=== PATIENT | male | born 1980 | race Caucasian/White ===

== ENCOUNTER → 2016-06-16 | Outpatient (CLI) | payer OTHER ==
[~2016-06-16] MED LIST: ISOVUE-370 76% 100ML VIAL (Q9967) As Ordered ONE
--- NOTE | 2016-06-16 12:11 | REP ---
CT NECK WITHOUT CONTRAST: HISTORY: Neck mass. The naso-, luna-, and hypopharynx, larynx and subglottic trachea are normal in appearance. The salivary glands are normal. A 7 mm hypodensity containing a punctate calcification is present in the right thyroid lobe. A 1.2 cm calcification is present in the left thyroid lobe. Small lymph nodes less than 1 cm in size are present in the internal jugular chains, posterior triangles, submandibular and submental areas. There is no neck mass or adenopathy. The lung apices are clear. Retention cysts are present in the maxillary sinuses. IMPRESSION: There is a 7 mm hypodensity containing a punctate calcification in the right thyroid lobe. A 1.2 cm calcification is present in the left thyroid lobe. Ultrasound may be helpful for further evaluation. Signed by Paul Frank MD 06/16/2016 12:14 P
== END ==
LOC: M RAD 10:24
PROVIDERS: ATTEND Physician Assistant Medical
DX: E07.89 Other specified disorders of thyroid (principal)

== ENCOUNTER → 2016-09-04 | Outpatient (REF) | payer OTHER | LOC: M LAB REF 09:45 | PROVIDERS: ATTEND Internal Medicine Endocrinology, Diabetes & Metabolism | DX: D44.0 Neoplasm of uncertain behavior of thyroid gland (principal) ==

== ENCOUNTER 2016-10-20 07:51 | Emergency (ER) | payer OTHER ==
[~2016-10-20] VITALS: Ht 185.4 cm; Wt 99.8 kg
[2016-10-20] MEDS ORDERED: GLUC750T22 PO (08:09)
[2016-10-20] MEDS ORDERED: FISH1000 PO (08:09)
[2016-10-20] MEDS ORDERED: LEVO25TA5 PO (08:09)
[2016-10-20] MEDS ORDERED: ZOLO100T PO (08:09)
[2016-10-20] MEDS ORDERED: ASPIRIN 81 MG CHEW TABLET PO ONE (08:45)
[2016-10-20 08:52] LABS: ANION GAP 10 MEQ/L (8-16); BLOOD UREA NITROGEN 14 MG/DL (7-18); CALCIUM LEVEL 9.1 MG/DL (8.5-10.1); CARBON DIOXIDE LEVEL 22 MEQ/L (21-32); CHLORIDE LEVEL 109 MEQ/L (98-107); CREATININE FOR GFR 1.06 MG/DL (0.70-1.30); FREE T4 0.77 NG/DL (0.76-1.46); GLOMERULAR FILTRATION RATE > 60.0 (>60); GLUCOSE, FASTING 92 MG/DL (70-105); SODIUM LEVEL 141 MEQ/L (136-145)
[2016-10-20 09:00] LABS: EOS # 0.5 K/mm3 (0.0-0.50); EOS % 9.3 % (0.0-3.0); LARGE UNSTAINED CELL # 0.1 K/mm3 (0.0-0.4); LARGE UNSTAINED CELL % 1.9 % (0.0-4.0); LYMPH # 2.8 K/mm3 (1.5-4.5); LYMPH % 52.3 % (24.0-44.0); MEAN CORPUSCULAR HGB CONC 34.4 g/dl (32.0-36.5); MONO # 0.2 K/mm3 (0.0-0.8); MONO % 3.8 % (0.0-5.0); NEUTROPHILS # 1.6 K/mm3 (1.8-7.7); NEUTROPHILS % 31.7 % (36.0-66.0); PLATELET COUNT, AUTOMATED 227 k/mm3 (150-450); WHITE BLOOD COUNT 5.1 K/mm3 (4.0-10.0)
[2016-10-20 09:08] LABS: POTASSIUM SERUM 2.9 MEQ/L (3.5-5.1)
[2016-10-20] MEDS ORDERED: POTASSIUM CHLORIDE 10 MEQ SR TABLET PO ONE (09:15)
--- NOTE | 2016-10-20 09:36 | REP ---
CHEST, PORTABLE, SINGLE VIEW: There is no evidence of acute infiltrate. No pleural effusion is seen. The heart is normal in size. The mediastinal silhouette is unremarkable. The visualized osseous structures are intact. IMPRESSION: No acute pulmonary disease. Signed by Nolan Damon MD 10/20/2016 03:12 P
--- NOTE | 2016-10-20 12:20 | ECGEPIP ---
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
[2016-10-20] MEDS ORDERED: ISOVUE-370 76% 100ML VIAL (Q9967) As Ordered ONE (14:24)
[2016-10-20 15:22] VITALS: BP 120/65
--- NOTE | 2016-10-20 15:25 | REP ---
CT ANGIOGRAM OF THE CHEST: TECHNIQUE: Axial contrast enhanced images from the thoracic inlet to the upper abdomen using 100 mL Isovue 370 intravenous contrast material with multiplanar reformations. There is no CT evidence of a pulmonary embolism. There is n evidence of mediastinal, hilar, or chest wall lymphadenopathy. There is no pleural or pericardial effusion. The heart is normal in size. There is no infiltrate. There appears to be linear pleural thickening along the right minor fissure. There is a 3 mm nodular opacity in the left lower lobe which is of doubtful significance. IMPRESSION: No CT evidence of pulmonary embolism. 3 mm nodular density in the left lower lobe. Recommend followup CT in 1 year only if the patient is at high risk for cancer. Signed by Nolan Damon MD 10/20/2016 03:30 P
--- NOTE | 2016-10-21 05:56 | ECGEPIP ---
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
== END 2016-10-20 15:23 | disposition home or self-care (01) ==
LOC: M ED 08:51
DX: R91.1 Solitary pulmonary nodule (principal); R07.89 Other chest pain; E78.5 Hyperlipidemia, unspecified; E03.9 Hypothyroidism, unspecified; Z79.899 Other long term (current) drug therapy
CPT/HCPCS: 36415; 71010; 71275; 80048; 82550; 82553; 84439; 84443; 85025; 93005; 93041; 94760; 99285; Q9967

== ENCOUNTER → 2017-05-08 | Outpatient (REF) | payer OTHER ==
[2017-05-08 21:04] LABS: FREE T4 1.18 NG/DL (0.76-1.46); THYROID STIMULATING HORMONE 0.009 uIU/ML (0.358-3.740)
[2017-05-10 10:13] LABS: THRYOGLOBULIN ANTIBODIES (ATA) < 1.0 IU/mL (0.0-0.9); THYROGLOBULIN QUANTITATIVE 14.8 ng/mL (1.4-29.2)
== END ==
LOC: M LAB REF 20:02 → M LABDRAW1 20:03
DX: E03.9 Hypothyroidism, unspecified (principal); C73 Malignant neoplasm of thyroid gland

== ENCOUNTER → 2017-10-02 | Outpatient (REF) | payer OTHER ==
[2017-10-02 16:37] LABS: FREE T4 1.08 NG/DL (0.76-1.46); THYROID STIMULATING HORMONE 0.009 uIU/ML (0.358-3.740)
[2017-10-04 10:16] LABS: THRYOGLOBULIN ANTIBODIES (ATA) < 1.0 IU/mL (0.0-0.9); THYROGLOBULIN QUANTITATIVE 15.6 ng/mL (1.4-29.2)
== END ==
LOC: M LABDRAW1 16:02
DX: E89.0 Postprocedural hypothyroidism (principal); C73 Malignant neoplasm of thyroid gland

== ENCOUNTER → 2018-02-13 | Outpatient (REF) | payer OTHER | LOC: M SMT 13:21 | DX: Z30.2 Encounter for sterilization (principal) | CPT/HCPCS: 88302 ==

== ENCOUNTER → 2018-05-15 | Outpatient (CLI) | payer OTHER ==
[~2018-05-15] MED LIST changes: +FISH1000 PO; +GLUC750T22 PO; -ISOVUE-370 76% 100ML VIAL (Q9967) As Ordered ONE; +LEVO25TA5 PO; +ZOLO100T PO
== END ==
LOC: M OUTALCOH 09:22
PROVIDERS: ATTEND Psychiatry & Neurology Psychiatry
DX: Z03.89 Encounter for observation for other suspected diseases and conditions ruled out (principal)

== ENCOUNTER 2018-05-23 15:52 | Outpatient (RCR) | payer OTHER | END 2018-05-30 | LOC: M OUTALCOH 15:52 | PROVIDERS: ATTEND Psychiatry & Neurology Psychiatry | DX: Z03.89 Encounter for observation for other suspected diseases and conditions ruled out (principal) ==

== ENCOUNTER → 2018-07-02 | Outpatient (REF) | payer OTHER ==
[2018-07-03 10:27] LABS: THRYOGLOBULIN ANTIBODIES (ATA) < 1.0 IU/mL (0.0-0.9); THYROGLOBULIN QUANTITATIVE 35.7 ng/mL (1.4-29.2)
== END ==
LOC: M LABDRAW1 12:44 → M LAB REF 12:44
PROVIDERS: ATTEND Internal Medicine Endocrinology, Diabetes & Metabolism
DX: C73 Malignant neoplasm of thyroid gland (principal)

== ENCOUNTER → 2018-11-08 | Outpatient (REF) | payer OTHER ==
[2018-11-08 12:34] LABS: FREE T4 0.95 NG/DL (0.76-1.46); THYROID STIMULATING HORMONE 0.021 uIU/ML (0.358-3.740)
[2018-11-08 12:36] LABS: THYROGLOBULIN ANTIBODY 18.4 U/ML (<60.0)
[2018-11-09 14:16] LABS: THRYOGLOBULIN ANTIBODIES (ATA) < 1.0 IU/mL (0.0-0.9); THYROGLOBULIN QUANTITATIVE 19.9 ng/mL (1.4-29.2)
== END ==
LOC: M LABDRAW1 09:56
PROVIDERS: ATTEND Nurse Practitioner Family
DX: E89.0 Postprocedural hypothyroidism (principal)

== ENCOUNTER → 2019-05-13 | Outpatient (REF) | payer OTHER ==
[2019-05-13 13:40] LABS: FREE T4 1.13 NG/DL (0.76-1.46); THYROID STIMULATING HORMONE 0.053 uIU/ML (0.358-3.740)
[2019-05-14 14:10] LABS: THRYOGLOBULIN ANTIBODIES (ATA) < 1.0 IU/mL (0.0-0.9); THYROGLOBULIN QUANTITATIVE 15.1 ng/mL (1.4-29.2)
== END ==
LOC: M LABDRAW1 12:47
PROVIDERS: ATTEND Nurse Practitioner Family
DX: E89.0 Postprocedural hypothyroidism (principal)

== ENCOUNTER 2019-06-13 10:20 | Inpatient (IN) | payer OTHER ==
[~2019-06-13] VITALS: Ht 185.4 cm; Wt 97.6 kg
[2019-06-13] MEDS ORDERED: SERT-138 PO (10:36)
[2019-06-13] MEDS ORDERED: SYNT175T2 PO (10:36)
[2019-06-13 11:07] LABS: HEMATOCRIT 45.5 % (42.0-52.0); HEMOGLOBIN 15.3 g/dl (13.5-17.5); MEAN CORPUSCULAR HEMOGLOBIN 30.2 pg (27.0-33.0); MEAN CORPUSCULAR HGB CONC 33.6 g/dl (32.0-36.5); MEAN CORPUSCULAR VOLUME 89.9 fl (80.0-96.0); PLATELET COUNT, AUTOMATED 282 10^3/uL (150-450); RED BLOOD COUNT 5.06 10^6/uL (4.30-6.10); WHITE BLOOD COUNT 6.9 10^3/uL (4.0-10.0)
[2019-06-13 11:36] LABS: AMPHETAMINES LEVEL URINE NEGATIVE (NEGATIVE); BARBITURATES URINE NEGATIVE (NEGATIVE); BENZODIAZEPINES URINE NEGATIVE (NEGATIVE); CANNABINOIDS URINE POSITIVE (NEGATIVE); COCAINE METABOLITE URINE NEGATIVE (NEGATIVE); METHADONE URINE NEGATIVE (NEGATIVE); OPIATES URINE NEGATIVE (NEGATIVE); PHENCYCLIDINE URINE NEGATIVE (NEGATIVE)
[2019-06-13 12:11] LABS: ACETAMINOPHEN LEVEL < 2.0 UG/ML (10.0-30.0); ALBUMIN 4.5 GM/DL (3.2-5.2); ALT/SGPT 44 U/L (12-78); BILIRUBIN,DIRECT 0.2 MG/DL (0.0-0.2); BILIRUBIN,TOTAL 0.3 MG/DL (0.2-1.0); BLOOD UREA NITROGEN 10 MG/DL (7-18); CALCIUM LEVEL 9.1 MG/DL (8.5-10.1); CARBON DIOXIDE LEVEL 25 MEQ/L (21-32); CHLORIDE LEVEL 108 MEQ/L (98-107); CREATININE FOR GFR 1.01 MG/DL (0.70-1.30); ETHYL ALCOHOL (ETHANOL) 0.052 % (0.000-0.010); GLOMERULAR FILTRATION RATE > 60.0 (>60); GLUCOSE, FASTING 87 MG/DL (70-100); POTASSIUM SERUM 3.9 MEQ/L (3.5-5.1); SALICYLATE LEVEL 2.5 MG/DL (5.0-30.0); SODIUM LEVEL 140 MEQ/L (136-145); THYROID STIMULATING HORMONE 0.085 uIU/ML (0.358-3.740); TOTAL PROTEIN 8.2 GM/DL (6.4-8.2)
[2019-06-13] MEDS ORDERED: MAALOX 30 ML SUSP *UDC PO PRN (14:15)
[2019-06-13] MEDS ORDERED: ACETAMINOPHEN TAB 650MG DOSE (2X325MG) PO PRN (14:15)
[2019-06-13] MEDS ORDERED: MOM 30ML SUSPENSION UDC PO PRN (14:15)
[2019-06-13 16:31] VITALS: BP 144/85
[2019-06-13] MEDS: NICOTINE 21MG/24HR 1 EA TRANSDERMAL TD SCH (17:45)
[2019-06-14] MEDS: LEVOTHYROXINE 125MCG TABLET (0.125MG) PO SCH (05:56)
[2019-06-14] MEDS: LEVOTHYROXINE 50MCG TABLET (0.05MG) PO SCH (05:56)
[2019-06-14 06:16] VITALS: BP 149/85
[2019-06-14] MEDS: NICOTINE 21MG/24HR 1 EA TRANSDERMAL TD SCH (08:59)
--- NOTE | 2019-06-14 10:44 | MHHPEPDOC ---
[facility] History & Physical History and Physical DATE OF ADMISSION: Jun 13, 2019 at 14:01 New Patient Joseph Franklin MRN: N/A Date of : N/A Date of Service: 06/14/2019 Chief Complaint "I can't deal with my shit." History of Present Illness The patient is a 38-year-old man who has a history of PTSD, had served in the for nearly 16 years in [facility] after reportedly having suicidal thoughts of wanting to shoot himself. He had reportedly told his today that he would "bullet" and had been chased by police into the [facility] where he had come out after he reportedly was able to be coaxed out and brought to the ER where he was admitted out of an abundance of caution. When I met with the patient, he reported that he had significant memories focused on his experiences that haunted him intrusive thoughts hypervigilance and negative cognition about the future. He reports coping with alcohol and sex. He describes that his symptoms are difficult to manage at baseline, but become extremely difficult to manage when he starts drinking. He reports drinking in the night before presentation and reports that his marriage has been suffering due to his multiple affairs. He reports that he is become increasingly pessimistic, self approached, depressed and lost interest in various activities. He is currently [facility] in order to get more working skills; however, he reports that he does not comply with his [facility] mental health treatment and has not been taking medication Review Of Systems Depression: As above. Anxiety: The patient denies any excessive worry associated with physical symptoms. They deny any experience of discreet panic in the past. Claudine: The patient denies any episodes of euphoria/dysphoria associated with decreased need for sleep, hedonism, talkatively or impulsivity lasting longer than 5 days. Psychotic: The patient denies any experiences of auditory or visual hallucinations. They deny any episodes of paranoia or delusional thinking in the past Trauma: As above. Borderline: The patient screens negative for borderline personality at this junction. Past Psychiatric History Has a history of psychiatric admissions in the to [facility] for substance use, diagnosed with PTSD, previously on sertraline, sees Dr. Jarrell at the [facility]. Denies a history of suicide attempts. Allergies Please see below. Family Psychiatric History Reports having a father that had depression and substance use problems, but no suicide in the family. Social History Patient is currently to a second , has several children, one from previous marriage and two from his current , currently subsists on disability, graduated high school GED, some college, reports having difficulties with DUI. Patient grew up with parents at good relationship with both. He denies any history of trauma or abuse growing up. Currently owns his own home, lives with his spouse. Describes himself as heterosexual. He had served in the [employer], after 22. Substance Abuse History The patient reports a significant history of alcohol use binging pattern drinking significant amounts. Denies excessive tobacco use or illicit drug use at this time. Medical History Has a history of chronic diarrhea, hypercholesterolemia. Mental Status Examination General: Fair hygiene. Speech: Spontaneous and fluid Thought processes: Hopeless. MSK: Smooth and coordinated gait, no signs of tremors or involuntary orofacial movements Thought content: Future orientated Abstract reasoning, and computation: Intact Description of associations: Intact Description of abnormal or psychotic thoughts: He admits to does having suicidal thoughts at times. Judgment: Impaired. Insight: Impaired. Orientation: Alert and orientated 3 Cognition: Grossly normal Recent and remote memory: Intact Attention span and concentration: Intact Fund of knowledge: Adequate Mood: "Fine." Affect: Irritable at times and dysthymic. Diagnoses PTSD, chronic. MDD, moderate Alcohol use disorder. Assessment and Plan PTSD/MDD: We'll start Effexor 37.5 mg daily, reports noncompliant with sertraline. Alcohol use disorder: Start CIWA. We'll start naltrexone 25 mg daily. Discussed about outpatient . Disposition Patient will need a further inpatient admission to treat suicidal thoughts and severe PTSD. Problem List 1. Risk for suicide. 2. Ineffective coping. 3. Substance abuse. Initial Treatment Plan 1. Patient was admitted on a 9.39 legal status. 2. Complete history was obtained. 3. With patients permission, family will be contacted and database will be expanded. 4. Patients medication regimen will be reviewed and changed accordingly. 5. Patient will be provided with protected environment. 6. Patient will be treated with individual, group, and milieu therapies. 7. Patient will receive supportive psych-education. 8. Discharge planning will commence immediately. 9. Outpatient follow-up treatment will be strongly recommended. 10. The initial treatment plan will focus initially on: Estimated Length Of Stay 4 days. Time Spent 70 minutes. Sunday Vital Signs Vital Signs Date Time Temp Pulse Resp B/P (MAP) Pulse Ox O2 Delivery O2 Flow Rate FiO2 06/14/19 06:16 98.1 70 16 149/85 (106) 06/13/19 16:31 96 Room Air Laboratory Data 24H Labs Laboratory Tests 2 06/13/19 10:47: Nucleated Red Blood Cells % (auto) 0.0, Anion Gap 7L, Glomerular Filtration Rate > 60.0, Calcium Level 9.1, Total Bilirubin 0.3, Direct Bilirubin 0.2, Aspartate Amino Transf (AST/SGOT) 19, Alanine Aminotransferase (ALT/SGPT) 44, Alkaline Phosphatase 103, Total Protein 8.2, Albumin 4.5, Albumin/Globulin Ratio 1.22, Thyroid Stimulating Hormone (TSH) 0.085L, Salicylates Level 2.5L, Urine Opiates Screen NEGATIVE, Urine Methadone Screen NEGATIVE, Acetaminophen Level < 2.0L, Urine Barbiturates Screen NEGATIVE, Urine Phencyclidine Screen NEGATIVE, Urine Amphetamines Screen NEGATIVE, Urine Benzodiazepines Screen NEGATIVE, Urine Cocaine Metabolite Screen NEGATIVE, Urine Cannabinoids Screen POSITIVEH, Ethyl Alcohol Level 0.052H CBC/BMP Laboratory Tests 06/13/19 10:47 Medications Scheduled Levothyroxine Sodium (Synthroid) 175 Mcg Tablet, 175 MCG PO DAILY, (Reported) Sertraline HCl (Sertraline HCl) 100 Mg Tablet, 100 MG PO DAILY, (Reported) Allergies Coded Allergies: No Known Allergies (Unverified , 10/20/16) KARAN JACOBSON DO Jun 14, 2019 10:44
[2019-06-14] MEDS ORDERED: NALTREXONE 50 MG TAB PO ONE (13:00)
[2019-06-14] MEDS ORDERED: VENLAFAXINE **XR** 37.5 MG CAPSULE PO ONE (13:00)
[2019-06-14 15:13] VITALS: BP 116/65
[2019-06-15] MEDS: LEVOTHYROXINE 50MCG TABLET (0.05MG) PO SCH (05:58)
[2019-06-15] MEDS: LEVOTHYROXINE 125MCG TABLET (0.125MG) PO SCH (05:58)
[2019-06-15 06:09] VITALS: BP 140/88
[2019-06-15] MEDS: NICOTINE 21MG/24HR 1 EA TRANSDERMAL TD SCH (08:25)
[2019-06-15] MEDS: VENLAFAXINE **XR** 37.5 MG CAPSULE PO SCH (08:35)
[2019-06-15] MEDS: NALTREXONE 50 MG TAB PO SCH (08:35)
[2019-06-15] MEDS ORDERED: VENLAFAXINE **XR** 37.5 MG CAPSULE PO ONE (12:30)
[2019-06-15] MEDS ORDERED: NALTREXONE 50 MG TAB PO ONE (12:30)
--- NOTE | 2019-06-15 13:03 | HPEPDOC ---
General Date of Admission Jun 13, 2019 at 14:01 Date of Service: Jun 15, 2019 Chief Complaint The patient is a 38-year-old male admitted with a reason for visit of PTSD. Source: Patient Exam Limitations: No limitations Timing/Duration: Other (not applicable) Severity: Other (not applicable) Associated Symptoms: Other (. None) History of Present Illness This is a 38 years old white male with past medical history of hypothyroidism, pheochromocytoma, depression, was brought to ER as patient has threatened to call Himself. Patient is being admitted to inpatient mental health unit for observation. Patient seen and examined and inpatient mental health unit. He denies any chief complaints. He denies chest pain, shortness of breath, nausea, vomiting, dizziness, etc. Home Medications Scheduled Levothyroxine Sodium (Synthroid) 175 Mcg Tablet, 175 MCG PO DAILY, (Reported) Sertraline HCl (Sertraline HCl) 100 Mg Tablet, 100 MG PO DAILY, (Reported) Allergies Coded Allergies: No Known Allergies (Unverified , 10/20/16) Past Medical History Medical History Hypothyroidism, thyroid cancer, pheochromocytoma, depression Surgical History Left ankle surgery. Variceal surgery and adrenalectomy. Tonsillectomy, septoplasty, and vasectomy Social History * Smoker: Denies Alcohol: other (. Occasionally he drinks very) Drugs: denies A-FIB/CHADSVASC A-FIB History Current/History of A-Fib/PAF?: No Review of Systems Constitutional: Denies: Chills, Fever, Malaise, Night Sweats, Weakness, Fatigue, Weight Loss, Lethargy, Other Eyes: Denies: Pain, Vision change, Conjunctivae inflammation, Eyelid inflammation, Redness, Other ENT: Denies: Head Aches, Ear Pain, Dysphagia, Sinus Congestion, Post Nasal Drip, Sore Throat, Epistaxis, Other Symptoms Skin: Denies: Rash, Lesions, Jaundice, Bruising, Itching, Dry, Breakdown, Nail Changes, Other Pulmonary: Denies: Dyspnea, Cough, Pleuritic Chest Pain, Other Symptoms Cardiovascular: Denies: Chest Pain, Palpitations, Orthopnea, Paroxysmal Noc. Dyspnea, Edema, Lt Headedness, Other Symptoms Gastrointestinal: Denies: Nausea, Vomiting, Abdominal Pain, Diarrhea, Constipation, Melena, Hematochezia, Other Symptoms Genitourinary: Denies: Dysuria, Frequency, Incontinence, Hematuria, Retention, Other Symptoms Hematologic: Denies: Bruising, Bleeding Excessively, Petecchia, Purpura, Enlarged Lymph Nodes, Other Hematologic Endocrine: Denies: Polydipsia, Polyphagia, Polyuria, Heat Intolerance, Cold Intolerance, Other Endocrine Sx Musculoskeletal: Denies: Neck Pain, Back Pain, Shoulder Pain, Arm Pain, Hand Pain, Leg Pain, Foot Pain, Joint Pain, Muscle Pain, Spasms, Other Symptoms Neurological: Denies: Weakness, Numbness, Incoordination, Change in speech, Confusion, Seizures, Other Symptoms Psych: Denies: Mood Normal, Anxiety, Depression, Memory Issues, Thoughts of Self Harm, Anger, Thoughts of Harming Other, Other Psych Physical Examination General Exam: Positive: Alert, Cooperative Eye Exam: Positive: PERRLA, Conjunctiva & lids normal ENT Exam: Positive: Atraumatic, Mucous membr. moist/pink Neck Exam: Positive: Supple Chest Exam: Positive: Clear to auscultation, Normal air movement Heart Exam: Positive: Rate Normal, Normal S1, Normal S2 Abdomen Exam: Positive: Normal bowel sounds, Soft Extremity Exam: Positive: Normal pulses Skin Exam: Positive: Nl turgor and temperature Neuro Exam: Positive: Sensation Intact, Cranial Nerves 3-12 NL Vital Signs Vital Signs Date Time Temp Pulse Resp B/P (MAP) Pulse Ox O2 Delivery O2 Flow Rate FiO2 06/15/19 06:09 97.7 71 16 140/88 (105) 06/13/19 16:31 96 Room Air Problems (1) Suicidal ideation Status: Acute Problem Text: Patient was admitted to inpatient mental health unit with suicida l ideations Patient does have a history of major depression in the past and he is been noncompliant to his meds and also have been drinking heavily Individual and group counseling, as per psychiatry Pharmaceutical intervention for depression as per psychiatry (2) Depression Status: Chronic Problem Text: As above (3) Hypothyroid Status: Chronic Problem Text: Patient's TSH is 0.085. He is on 175 g of Synthroid daily Will order a free T4 level and adjust the dose of Synthroid if needed We'll also order a.m. cortisol level secondary to history of adrenalectomy Will follow-up patient once the labs are available Plan / VTE VTE Prophylaxis Ordered?: No VTE Exclusion Mechanical Proph: Low Risk for VTE VTE Exclusion Pharmacological: At Low Risk for VTE MARCK GRAHAM MD Jun 15, 2019 13:03
--- NOTE | 2019-06-15 13:15 | MHIPNPDOC ---
[facility] Progress Note Progress Note Inpatient Progress Note Joseph Franklin MRN: N/A Date of : N/A Date of Service: 06/15/2019 History of Present Illness The patient is a 38-year-old man who has a history of PTSD, had served in the for nearly 16 years in [facility] after reportedly having suicidal thoughts of wanting to shoot himself. He had reportedly told his today that he would "eat a bullet" and had been chased by police into the [facility] where he had come out after he reportedly was able to be coaxed out and brought to the ER where he was admitted out of an abundance of caution. When I met with the patient, he reported that he had significant memories focused on his experiences that haunted him intrusive thoughts hypervigilance and negative cognition about the future. He reports coping with alcohol and sex. He describes that his symptoms are difficult to manage at baseline, but become extremely difficult to manage when he starts drinking. He reports drinking in the night before presentation and reports that his marriage has been suffering due to his multiple affairs. He reports that he is become increasingly pessimistic, self approached, depressed and lost interest in various activities. He is currently in a [facility] program in order to get more working skills; however, he reports that he does not comply with his [facility] mental health treatment and has not been taking medication Interval History Narrative: The patient has met with, he reports having a difficult call with last night and want to isolate. He reports that he worries about his relationship with her. Affective: The patient reports feeling somewhat better from last night, but reports that he still has difficulty with anxiety and mood change. Psychotic: Denies any symptoms. Anxiety: He reports triggers and stressors related to his current marital situation. Eating and sleeping behaviors: Within normal limits. Group Attendance: Attends frequently. Medication Side effects: See ROS below Behavioral problems/significant events overnight: Patient had difficult call, but did not want to speak about it last night. Staff Report: The patient generally amenable, although sometimes irritable. He is able to be spoken to and after some calming he does quite well. Review Of Systems General: Denies fever or appetite changes Cardiovascular: Denies Chest pain or palpations GI: Denies Nausea, vomiting, or bowel changes Respiratory: Denies shortness of breath or cough Neuro: Denies dizziness, tremors Derm: Denies any rashes or pruritus : Denies any dysuria or urinary problems MSK: Denies any muscle tightness or stiffness HEENT: Denies any vision changes or headaches Psychotherapy None on this visit. Vital Signs Reviewed. Mental Status Examination General: Fair hygiene. Speech: Spontaneous and fluid Thought processes: Hopeless. MSK: Smooth and coordinated gait, no signs of tremors or involuntary orofacial movements Thought content: Future orientated Abstract reasoning, and computation: Intact Description of associations: Intact Description of abnormal or psychotic thoughts: He admits to does having suicidal thoughts at times. Judgment: Impaired. Insight: Impaired. Orientation: Alert and orientated 3 Cognition: Grossly normal Recent and remote memory: Intact Attention span and concentration: Intact Fund of knowledge: Adequate Mood: "Fine." Affect: Irritable at times and dysthymic. Diagnoses PTSD, chronic. MDD, moderate Alcohol use disorder. Assessment and Plan PTSD/MDD: To continue Effexor 37.5 mg daily. Alcohol use disorder: To continue CIWA and naltrexone 25 at this time. Disposition Patient is deciding whether to do inpatient or outpatient rehab. Family meeting tomorrow to help patient decide with , which is most appropriate for his needs. Time Spent 15 minutes [id number]. Sunday Vital Signs Vital Signs Date Time Temp Pulse Resp B/P (MAP) Pulse Ox O2 Delivery O2 Flow Rate FiO2 06/15/19 06:09 97.7 71 16 140/88 (105) 06/13/19 16:31 96 Room Air Current Medications Current Medications Medications (Trade) Dose Ordered Sig/Donnie Route PRN Reason Start Time Stop Time Status Last Admin Dose Admin Acetaminophen (Tylenol Tab) 650 mg Q6HP PRN PO HEADACHE or DISCOMFORT 06/13/19 14:15 Al Hydrox/Mg Hydrox/Simethicone (Mylanta) 30 ml Q4HP PRN PO HEARTBURN/INDIGESTION 06/13/19 14:15 Home Med (Med Rec Complete!) ASDIRECTED XX 06/13/19 14:30 06/13/19 14:21 DC Levothyroxine Sodium (Synthroid) 50 mcg DAILY@06 PO 06/14/19 06:00 06/15/19 05:58 Levothyroxine Sodium (Synthroid) 125 mcg DAILY@06 PO 06/14/19 06:00 06/15/19 05:58 Magnesium Hydroxide (Milk Of Magnesia) 30 ml DAILYPRN PRN PO CONSTIPATION 06/13/19 14:15 Naltrexone HCl (Revia) 25 mg DAILY PO 06/15/19 09:00 Nicotine (Nicoderm Cq 21mg) 1 patch DAILY TD 06/13/19 09:00 Trazodone HCl (Desyrel) 50 mg QHSP PRN PO INSOMNIA 06/13/19 14:15 Venlafaxine HCl (Effexor Xr) 37.5 mg DAILY PO 06/15/19 09:00 Allergies Coded Allergies: No Known Allergies (Unverified , 10/20/16) KARAN JACOBSON DO Jun 15, 2019 13:15
[2019-06-15 18:33] VITALS: BP 138/88
[2019-06-15] MEDS: traZODone 50 MG TAB PO PRN (22:21)
[2019-06-16] MEDS: LEVOTHYROXINE 125MCG TABLET (0.125MG) PO SCH (05:54)
[2019-06-16] MEDS: LEVOTHYROXINE 50MCG TABLET (0.05MG) PO SCH (05:55)
[2019-06-16 06:00] VITALS: BP 148/68
--- NOTE | 2019-06-16 08:29 | MHIPNPDOC ---
[facility] Progress Note Progress Note Inpatient Progress Note Joseph Franklin MRN: N/A Date of : N/A Date of Service: 06/16/2019 History of Present Illness The patient is a 38-year-old man who has a history of PTSD, had served in the for nearly 16 years in [facility] after reportedly having suicidal thoughts of wanting to shoot himself. He had reportedly told his today that he would "eat a bullet" and had been chased by police into the [place] where he had come out after he reportedly was able to be coaxed out and brought to the ER where he was admitted out of an abundance of caution. When I met with the patient, he reported that he had significant memories focused on his experiences that haunted him intrusive thoughts hypervigilance and negative cognition about the future. He reports coping with alcohol and sex. He describes that his symptoms are difficult to manage at baseline, but become extremely difficult to manage when he starts drinking. He reports drinking in the night before presentation and reports that his marriage has been suffering due to his multiple affairs. He reports that he is become increasingly pessimistic, self approached, depressed and lost interest in various activities. [facility] to get more working skills; however, he reports that he does not comply with his [facility] mental health treatment and has not been taking medication Interval History Narrative: The patient is met with the treatment team and his are present by phone. Patient reports that he is interested in inpatient rehab at this time. Affective: The patient reports feeling better with less depression, more focused on his goals. Psychotic: Denies any symptoms. Anxiety: Improved ability to work with anxiety. Eating and sleeping behaviors: Within normal limits. Group Attendance: Attends frequently. Medication Side effects: See ROS below Behavioral problems/significant events overnight: None reported. Staff Report: The patient is becoming more engaged and afflicable. Review Of Systems General: Denies fever or appetite changes Cardiovascular: Denies Chest pain or palpitations GI: Reports no significant bowel changes. Denies nausea or vomiting Respiratory: Denies shortness of breath or cough Neuro: Denies dizziness, tremors Derm: Denies any rashes or pruritus : Denies any dysuria or urinary problems MSK: Denies any muscle tightness or stiffness HEENT: Denies any vision changes or headaches Psychotherapy None on this visit. Vital Signs Reviewed. Mental Status Examination General: Fair hygiene. Speech: Spontaneous and fluid. Thought processes: More future orientated. MSK: Smooth and coordinated gait, no signs of tremors or involuntary orofacial movements. Thought content: Future orientated. Abstract reasoning, and computation: Intact. Description of associations: Intact. Description of abnormal or psychotic thoughts: He admits to does having suicidal thoughts at times. Judgment: Improved. Insight: Improved. Orientation: Alert and orientated 3. Cognition: Grossly normal. Recent and remote memory: Intact. Attention span and concentration: Intact. Fund of knowledge: Adequate. Mood: "Fine." Affect: Less irritable. Diagnoses PTSD, chronic. MDD, moderate Alcohol use disorder. Assessment and Plan PTSD/MDD: Increase Effexor to 75 mg daily. Alcohol use disorder: To continue CIWA and naltrexone 25 at this time. Disposition We'll currently keep patient on a voluntary status at this time. We'll refer to rehab and determine proper discharge plan once time is available. Time Spent 15 minutes [id number]. Sunday Vital Signs Vital Signs Date Time Temp Pulse Resp B/P (MAP) Pulse Ox O2 Delivery O2 Flow Rate FiO2 06/16/19 06:00 98.4 64 14 148/68 (94) 06/13/19 16:31 96 Room Air Laboratory Data 24H Labs Laboratory Tests 2 06/16/19 07:02: Current Medications Current Medications Medications (Trade) Dose Ordered Sig/Donnie Route PRN Reason Start Time Stop Time Status Last Admin Dose Admin Acetaminophen (Tylenol Tab) 650 mg Q6HP PRN PO HEADACHE or DISCOMFORT 06/13/19 14:15 Al Hydrox/Mg Hydrox/Simethicone (Mylanta) 30 ml Q4HP PRN PO HEARTBURN/INDIGESTION 06/13/19 14:15 Home Med (Med Rec Complete!) ASDIRECTED XX 06/13/19 14:30 06/13/19 14:21 DC Levothyroxine Sodium (Synthroid) 50 mcg DAILY@06 PO 06/14/19 06:00 06/16/19 05:55 Levothyroxine Sodium (Synthroid) 125 mcg DAILY@06 PO 06/14/19 06:00 06/16/19 05:54 Magnesium Hydroxide (Milk Of Magnesia) 30 ml DAILYPRN PRN PO CONSTIPATION 06/13/19 14:15 Naltrexone HCl (Revia) 25 mg DAILY PO 06/15/19 09:00 Nicotine (Nicoderm Cq 21mg) 1 patch DAILY TD 06/13/19 09:00 Trazodone HCl (Desyrel) 50 mg QHSP PRN PO INSOMNIA 06/13/19 14:15 06/15/19 22:21 Venlafaxine HCl (Effexor Xr) 37.5 mg DAILY PO 06/15/19 09:00 Allergies Coded Allergies: No Known Allergies (Unverified , 10/20/16) KARAN JACOBSON DO Jun 16, 2019 08:28
[2019-06-16 08:41] LABS: FREE T4 1.09 NG/DL (0.76-1.46)
[2019-06-16] MEDS: NALTREXONE 50 MG TAB PO SCH (08:55)
[2019-06-16] MEDS: VENLAFAXINE **XR** 37.5 MG CAPSULE PO SCH (08:55)
[2019-06-16] MEDS: NICOTINE 21MG/24HR 1 EA TRANSDERMAL TD SCH (09:00)
[2019-06-16 10:55] LABS: CORTISOL AM 14.6 UG/DL (4.3-22.4)
[2019-06-16 18:01] VITALS: BP 140/89
[2019-06-16] MEDS: traZODone 50 MG TAB PO PRN (22:11)
[2019-06-17 05:40] VITALS: BP 152/70
[2019-06-17] MEDS: LEVOTHYROXINE 50MCG TABLET (0.05MG) PO SCH (06:11)
[2019-06-17] MEDS: LEVOTHYROXINE 125MCG TABLET (0.125MG) PO SCH (06:11)
[2019-06-17] MEDS: NICOTINE 21MG/24HR 1 EA TRANSDERMAL TD SCH (08:24)
[2019-06-17] MEDS: NALTREXONE 50 MG TAB PO SCH (08:25)
[2019-06-17] MEDS: VENLAFAXINE **XR** 75MG CAPSULE PO SCH (08:25)
--- NOTE | 2019-06-17 09:41 | MHIPNPDOC ---
[facility] Progress Note Progress Note Inpatient Progress Note Joseph Franklin MRN: N/A Date of : N/A Date of Service: 06/17/2019 History of Present Illness The patient is a 38-year-old man who has a history of PTSD, had served in the for nearly 16 years in [facility] after reportedly having suicidal thoughts of wanting to shoot himself. He had reportedly told his today that he would "eat a bullet" and had been chased by police into the [place] where he had come out after he reportedly was able to be coaxed out and brought to the ER where he was admitted out of an abundance of caution. When I met with the patient, he reported that he had significant memories focused on his experiences that haunted him intrusive thoughts hypervigilance and negative cognition about the future. He reports coping with alcohol and sex. He describes that his symptoms are difficult to manage at baseline, but become extremely difficult to manage when he starts drinking. He reports drinking in the night before presentation and reports that his marriage has been suffering due to his multiple affairs. He reports that he is become increasingly pessimistic, self approached, depressed and lost interest in various activities. He is currently in a [facility] program in order to get more working skills; however, he reports that he does not comply with his [facility] mental health treatment and has not been taking medication Interval History Narrative: The patient met with in group setting. Patient reports that he is doing well, currently looking for rehabs at this time. Affective: The patient is feeling improved, very little depressed mood, more focus on goals, no concentration problems. Psychotic: Denies any symptoms. Anxiety: Improved ability to work with anxiety. Eating and sleeping behaviors: Within normal limits. Group Attendance: Attends frequently. Medication Side effects: See ROS below Behavioral problems/significant events overnight: None reported. Staff Report: The patient is becoming more engaged and afflicable. Review Of Systems General: Denies fever or appetite changes Cardiovascular: Denies chest pain or palpitations GI: Denies Nausea, vomiting, or bowel changes Respiratory: Denies shortness of breath or cough Neuro: Denies dizziness, tremors Derm: Denies any rashes or pruritus : Denies any dysuria or urinary problems MSK: Denies any muscle tightness or stiffness HEENT: Denies any vision changes or headaches Psychotherapy None on this visit. Vital Signs Reviewed. Mental Status Examination General: Well dressed with good hygiene Speech: Spontaneous and fluid Thought processes: Linear and logical MSK: Smooth and coordinated gait, no signs of tremors or involuntary orofacial movements Thought content: Future orientated Abstract reasoning, and computation: Intact Description of associations: Intact Description of abnormal or psychotic thoughts: Denies any suicidal or homicidal ideation. Denies any auditory or visual hallucinations. Does not appear to be responding to internal stimuli. Does not appear to be endorsing any bizarre or paranoid ideation. Judgment: fair Insight: fair Orientation: Alert and orientated 3 Cognition: Grossly normal Recent and remote memory: Intact Attention span and concentration: Intact Fund of knowledge: Adequate Mood: "okay" Affect: Euthymic with a full range Diagnoses PTSD, chronic. MDD, moderate Alcohol use disorder. Assessment and Plan PTSD/MDD: Increase Effexor to 75 mg daily. Alcohol use disorder: To continue CIWA and naltrexone 25 at this time. Disposition Patient will need further inpatient admission in order to triage him into an effective rehab program. His alcoholism poses a severe danger to him as he has great impulsivity when he is drinking and great access to means including multiple weapons, thus, I would worry about his safety if a safe discharge plan is not effectively created. Time Spent 15 minutes [id number]. Sunday Vital Signs Vital Signs Date Time Temp Pulse Resp B/P (MAP) Pulse Ox O2 Delivery O2 Flow Rate FiO2 06/17/19 05:40 98.2 50 16 152/70 (97) 06/13/19 16:31 96 Room Air Current Medications Current Medications Medications (Trade) Dose Ordered Sig/Donnie Route PRN Reason Start Time Stop Time Status Last Admin Dose Admin Acetaminophen (Tylenol Tab) 650 mg Q6HP PRN PO HEADACHE or DISCOMFORT 06/13/19 14:15 Al Hydrox/Mg Hydrox/Simethicone (Mylanta) 30 ml Q4HP PRN PO HEARTBURN/INDIGESTION 06/13/19 14:15 Home Med (Med Rec Complete!) ASDIRECTED XX 06/13/19 14:30 06/13/19 14:21 DC Levothyroxine Sodium (Synthroid) 50 mcg DAILY@06 PO 06/14/19 06:00 06/17/19 06:11 Levothyroxine Sodium (Synthroid) 125 mcg DAILY@06 PO 06/14/19 06:00 06/17/19 06:11 Magnesium Hydroxide (Milk Of Magnesia) 30 ml DAILYPRN PRN PO CONSTIPATION 06/13/19 14:15 Naltrexone HCl (Revia) 25 mg DAILY PO 06/15/19 09:00 06/17/19 08:25 Nicotine (Nicoderm Cq 21mg) 1 patch DAILY TD 06/13/19 09:00 Trazodone HCl (Desyrel) 50 mg QHSP PRN PO INSOMNIA 06/13/19 14:15 06/16/19 22:11 Venlafaxine HCl (Effexor Xr) 37.5 mg DAILY PO 06/15/19 09:00 06/16/19 10:04 DC 06/16/19 08:55 Venlafaxine HCl (Effexor Xr) 75 mg DAILY PO 06/17/19 09:00 06/17/19 08:25 Allergies Coded Allergies: No Known Allergies (Unverified , 10/20/16) KARAN JACOBSON DO Jun 17, 2019 09:41
[2019-06-17 16:22] VITALS: BP 140/83
[2019-06-17 18:55] VITALS: BP 133/90
[2019-06-17] MEDS: traZODone 50 MG TAB PO PRN (22:03)
[2019-06-18] MEDS: LEVOTHYROXINE 50MCG TABLET (0.05MG) PO SCH (05:53)
[2019-06-18] MEDS: LEVOTHYROXINE 125MCG TABLET (0.125MG) PO SCH (05:53)
[2019-06-18 05:56] VITALS: BP 117/67
[2019-06-18] MEDS: NICOTINE 21MG/24HR 1 EA TRANSDERMAL TD SCH (08:04)
[2019-06-18] MEDS: PILL CUTTER 1 EACH XX PRN (08:05)
[2019-06-18] MEDS: VENLAFAXINE **XR** 75MG CAPSULE PO SCH (08:05)
[2019-06-18] MEDS: NALTREXONE 50 MG TAB PO SCH (08:05)
--- NOTE | 2019-06-18 09:53 | MHIPNPDOC ---
[facility] Progress Note Progress Note Inpatient Progress Note Joseph Franklin MRN: N/A Date of : N/A Date of Service: 06/18/2019 History of Present Illness The patient is a 38-year-old man who has a history of PTSD, had served in the for nearly 16 years in [facility] after reportedly having suicidal thoughts of wanting to shoot himself. He had reportedly told his today that he would "eat a bullet" and had been chased by police into the [place] where he had come out after he reportedly was able to be coaxed out and brought to the ER where he was admitted out of an abundance of caution. When I met with the patient, he reported that he had significant memories focused on his experiences that haunted him intrusive thoughts hypervigilance and negative cognition about the future. He reports coping with alcohol and sex. He describes that his symptoms are difficult to manage at baseline, but become extremely difficult to manage when he starts drinking. He reports drinking in the night before presentation and reports that his marriage has been suffering due to his multiple affairs. He reports that he is become increasingly pessimistic, self approached, depressed and lost interest in various activities. He is currently in a [facility] program in order to get more working skills; however, he reports that he does not comply with his VA mental health treatment and has not been taking medication Interval History Narrative: The patient was met with in the treatment team. He reports he is doing well, waiting anxiously on when a rehab bed might open. Currently awaiting the [facility] to give us options. Affective: The patient reports doing well. His moods is improved. He has begun working with his bahai topics to help improve this. Psychotic: Denies any symptoms. Anxiety: Much improved in the day. Eating and sleeping behaviors: Within normal limits. Group Attendance: Attends frequently. Medication Side effects: See ROS below Behavioral problems/significant events overnight: None reported. Staff Report: The patient is becoming more engaged and afflicable. Review Of Systems General: Denies fever or appetite changes Cardiovascular: Denies chest pain or palpitations GI: Denies Nausea, vomiting, or bowel changes Respiratory: Denies shortness of breath or cough Neuro: Denies dizziness, tremors Derm: Denies any rashes or pruritus : Denies any dysuria or urinary problems MSK: Denies any muscle tightness or stiffness HEENT: Denies any vision changes or headaches Psychotherapy None on this visit. Vital Signs Reviewed. Mental Status Examination General: Well dressed with good hygiene Speech: Spontaneous and fluid Thought processes: Linear and logical MSK: Smooth and coordinated gait, no signs of tremors or involuntary orofacial movements Thought content: Future orientated Abstract reasoning, and computation: Intact Description of associations: Intact Description of abnormal or psychotic thoughts: Denies any suicidal or homicidal ideation. Denies any auditory or visual hallucinations. Does not appear to be responding to internal stimuli. Does not appear to be endorsing any bizarre or paranoid ideation. Judgment: fair Insight: fair Orientation: Alert and orientated 3 Cognition: Grossly normal Recent and remote memory: Intact Attention span and concentration: Intact Fund of knowledge: Adequate Mood: "okay" Affect: Euthymic with a full range Diagnoses PTSD, chronic. MDD, moderate Alcohol use disorder. Assessment and Plan PTSD/MDD: Increase Effexor to 75 mg daily. Alcohol use disorder: To continue CIWA and naltrexone 25 at this time. Disposition Patient will need further inpatient admission in order to triage him into an effective rehab program. His alcoholism poses a severe danger to him as he has great impulsivity when he is drinking and great access to means including multiple weapons, thus, I would worry about his safety if a safe discharge plan is not effectively created. Time Spent 15 minutes [id number]. Sunday Vital Signs Vital Signs Date Time Temp Pulse Resp B/P (MAP) Pulse Ox O2 Delivery O2 Flow Rate FiO2 06/18/19 05:56 97.9 66 16 117/67 (84) 06/13/19 16:31 96 Room Air Current Medications Current Medications Medications (Trade) Dose Ordered Sig/Donnie Route PRN Reason Start Time Stop Time Status Last Admin Dose Admin Acetaminophen (Tylenol Tab) 650 mg Q6HP PRN PO HEADACHE or DISCOMFORT 06/13/19 14:15 Al Hydrox/Mg Hydrox/Simethicone (Mylanta) 30 ml Q4HP PRN PO HEARTBURN/INDIGESTION 06/13/19 14:15 Home Med (Med Rec Complete!) ASDIRECTED XX 06/13/19 14:30 06/13/19 14:21 DC Levothyroxine Sodium (Synthroid) 50 mcg DAILY@06 PO 06/14/19 06:00 06/18/19 05:53 Levothyroxine Sodium (Synthroid) 125 mcg DAILY@06 PO 06/14/19 06:00 06/18/19 05:53 Magnesium Hydroxide (Milk Of Magnesia) 30 ml DAILYPRN PRN PO CONSTIPATION 06/13/19 14:15 Naltrexone HCl (Revia) 25 mg DAILY PO 06/15/19 09:00 06/18/19 08:05 Nicotine (Nicoderm Cq 21mg) 1 patch DAILY TD 06/13/19 09:00 Trazodone HCl (Desyrel) 50 mg QHSP PRN PO INSOMNIA 06/13/19 14:15 06/17/19 22:03 Venlafaxine HCl (Effexor Xr) 37.5 mg DAILY PO 06/15/19 09:00 06/16/19 10:04 DC 06/16/19 08:55 Venlafaxine HCl (Effexor Xr) 75 mg DAILY PO 06/17/19 09:00 06/18/19 08:05 Allergies Coded Allergies: No Known Allergies (Unverified , 10/20/16) KARAN JACOBSON DO Jun 18, 2019 09:53
[2019-06-18 16:00] VITALS: BP 130/80
[2019-06-18] MEDS: traZODone 50 MG TAB PO PRN (21:46)
[2019-06-19] MEDS: LEVOTHYROXINE 50MCG TABLET (0.05MG) PO SCH (06:18)
[2019-06-19] MEDS: LEVOTHYROXINE 125MCG TABLET (0.125MG) PO SCH (06:18)
[2019-06-19 06:20] VITALS: BP 124/75
[2019-06-19] MEDS: NALTREXONE 50 MG TAB PO SCH ×2 (07:59→08:04)
[2019-06-19] MEDS: VENLAFAXINE **XR** 75MG CAPSULE PO SCH (07:59)
[2019-06-19] MEDS: NICOTINE 21MG/24HR 1 EA TRANSDERMAL TD SCH (08:01)
--- NOTE | 2019-06-19 09:14 | MHIPNPDOC ---
[facility] Progress Note Progress Note Inpatient Progress Note Joseph Franklin MRN: N/A Date of : N/A Date of Service: 06/19/2019 History of Present Illness The patient is a 38-year-old man who has a history of PTSD, had served in the for nearly 16 years in [facility] after reportedly having suicidal thoughts of wanting to shoot himself. He had reportedly told his today that he would "eat a bullet" and had been chased by police into the [place] where he had come out after he reportedly was able to be coaxed out and brought to the ER where he was admitted out of an abundance of caution. When I met with the patient, he reported that he had significant memories focused on his experiences that haunted him intrusive thoughts hypervigilance and negative cognition about the future. He reports coping with alcohol and sex. He describes that his symptoms are difficult to manage at baseline, but become extremely difficult to manage when he starts drinking. He reports drinking in the night before presentation and reports that his marriage has been suffering due to his multiple affairs. He reports that he is become increasingly pessimistic, self approached, depressed and lost interest in various activities. He is currently in a [facility] program in order to get more working skills; however, he reports that he does not comply with his [facility] mental health treatment and has not been taking medication Interval History Narrative: The patient is met with treatment team. He reports being upset about the delay in getting into rehab, somewhat upset at other times. Affective: The patient reports that he "must be doing well" as his irritability is much more able to controlled. Psychotic: Denies any symptoms. Anxiety: The patient reports some increase in situational anxiety. Eating and sleeping behaviors: Within normal limits. Group Attendance: Attends frequently. Medication Side effects: See ROS below Behavioral problems/significant events overnight: None reported. Staff Report: The patient generally applicable and engaged. No major behavioral problems. Review Of Systems General: Denies fever or appetite changes Cardiovascular: Denies chest pain or palpitations GI: Denies Nausea, vomiting, or bowel changes Respiratory: Denies shortness of breath or cough Neuro: Denies dizziness, tremors Derm: Denies any rashes or pruritus : Denies any dysuria or urinary problems MSK: Denies any muscle tightness or stiffness HEENT: Denies any vision changes or headaches Psychotherapy None on this visit. Vital Signs Reviewed. Mental Status Examination General: Well dressed with good hygiene Speech: Spontaneous and fluid Thought processes: Linear and logical MSK: Smooth and coordinated gait, no signs of tremors or involuntary orofacial movements Thought content: Future orientated Abstract reasoning, and computation: Intact Description of associations: Intact Description of abnormal or psychotic thoughts: Denies any suicidal or homicidal ideation. Denies any auditory or visual hallucinations. Does not appear to be responding to internal stimuli. Does not appear to be endorsing any bizarre or paranoid ideation. Judgment: fair Insight: fair Orientation: Alert and orientated 3 Cognition: Grossly normal Recent and remote memory: Intact Attention span and concentration: Intact Fund of knowledge: Adequate Mood: "okay" Affect: Euthymic with a full range Diagnoses PTSD, chronic. MDD, moderate Alcohol use disorder. Assessment and Plan PTSD/MDD: Continue Effexor 75 mg daily. Alcohol use disorder: To continue CIWA and naltrexone 25 at this time. Disposition Patient will be evaluated for rehab later in the day after this provider left. He became upset and wanted to leave after having a difficult phone call; however, the patient was told that he needed to wait until the next day in order to have a discussion due to the difficulties of his not wanting him to return. He has significant impulsivity and alcohol problems as well as access to firearms, thus a safe discharge is highly indicated in this situation. Time Spent 15 minutes. Vital Signs Vital Signs Date Time Temp Pulse Resp B/P (MAP) Pulse Ox O2 Delivery O2 Flow Rate FiO2 06/19/19 06:20 98.9 55 18 124/75 (91) 06/13/19 16:31 96 Room Air Current Medications Current Medications Medications (Trade) Dose Ordered Sig/Donnie Route PRN Reason Start Time Stop Time Status Last Admin Dose Admin Acetaminophen (Tylenol Tab) 650 mg Q6HP PRN PO HEADACHE or DISCOMFORT 06/13/19 14:15 Al Hydrox/Mg Hydrox/Simethicone (Mylanta) 30 ml Q4HP PRN PO HEARTBURN/INDIGESTION 06/13/19 14:15 Home Med (Med Rec Complete!) ASDIRECTED XX 06/13/19 14:30 06/13/19 14:21 DC Levothyroxine Sodium (Synthroid) 50 mcg DAILY@06 PO 06/14/19 06:00 06/19/19 06:18 Levothyroxine Sodium (Synthroid) 125 mcg DAILY@06 PO 06/14/19 06:00 06/19/19 06:18 Magnesium Hydroxide (Milk Of Magnesia) 30 ml DAILYPRN PRN PO CONSTIPATION 06/13/19 14:15 Naltrexone HCl (Revia) 25 mg DAILY PO 06/15/19 09:00 06/19/19 08:04 Nicotine (Nicoderm Cq 21mg) 1 patch DAILY TD 06/13/19 09:00 Trazodone HCl (Desyrel) 50 mg QHSP PRN PO INSOMNIA 06/13/19 14:15 06/18/19 21:46 Venlafaxine HCl (Effexor Xr) 37.5 mg DAILY PO 06/15/19 09:00 06/16/19 10:04 DC 06/16/19 08:55 Venlafaxine HCl (Effexor Xr) 75 mg DAILY PO 06/17/19 09:00 06/19/19 07:59 Allergies Coded Allergies: No Known Allergies (Unverified , 10/20/16) KARAN JACOBSON DO Jun 19, 2019 09:14
[2019-06-19] MEDS ORDERED: LORazepam 0.5 MG TAB PO ONE (12:15)
[2019-06-19 16:00] VITALS: BP 173/88
[2019-06-19 20:44] VITALS: BP 136/94
[2019-06-19] MEDS: traZODone 50 MG TAB PO PRN (22:19)
[2019-06-20 06:31] VITALS: BP 135/62
[2019-06-20] MEDS: LEVOTHYROXINE 125MCG TABLET (0.125MG) PO SCH (06:37)
[2019-06-20] MEDS: LEVOTHYROXINE 50MCG TABLET (0.05MG) PO SCH (06:37)
[2019-06-20] MEDS: NICOTINE 21MG/24HR 1 EA TRANSDERMAL TD SCH (09:00)
[2019-06-20] MEDS: VENLAFAXINE **XR** 75MG CAPSULE PO SCH (09:39)
[2019-06-20] MEDS: NALTREXONE 50 MG TAB PO SCH (09:39)
[2019-06-20] MEDS: PILL CUTTER 1 EACH XX PRN (09:39)
--- NOTE | 2019-06-20 10:34 | MHIPNPDOC ---
[facility] Progress Note Progress Note Inpatient Progress Note Joseph Franklin MRN: N/A Date of : N/A Date of Service: 06/20/2019 History of Present Illness The patient is a 38-year-old man who has a history of PTSD, had served in the for nearly 16 years in [facility] after reportedly having suicidal thoughts of wanting to shoot himself. He had reportedly told his today that he would "eat a bullet" and had been chased by police into the [facility] where he had come out after he reportedly was able to be coaxed out and brought to the ER where he was admitted out of an abundance of caution. When I met with the patient, he reported that he had significant memories focused on his experiences that haunted him intrusive thoughts hypervigilance and negative cognition about the future. He reports coping with alcohol and sex. He describes that his symptoms are difficult to manage at baseline, but become extremely difficult to manage when he starts drinking. He reports drinking in the night before presentation and reports that his marriage has been suffering due to his multiple affairs. He reports that he is become increasingly pessimistic, self approached, depressed and lost interest in various activities. [facility] to get [facility] working skills; however, he reports that he does not comply with his [facility] mental health treatment and has not been taking medication Interval History Narrative: The patient is met with individually. He reports that he is upset about the delay, the previous evening he had been quite upset demanding discharge after a difficult phone call. Affective: The patient reports that he is doing somewhat better but his irritability has yet to be fully controlled. Psychotic: Denies any symptoms. Anxiety: The patient reports situational anxiety related to rehab. Eating and sleeping behaviors: Within normal limits. Group Attendance: Attends frequently. Medication Side effects: See ROS below Behavioral problems/significant events overnight: Staff reported that the patient was upset yesterday, but was able to remain in behavioral control. Staff Report: The patient generally engaged although has moments of frustration. Review Of Systems Denies any side effects from his medications at this time. Psychotherapy None on this visit. Vital Signs Reviewed. Mental Status Examination General: Well dressed with good hygiene Speech: Spontaneous and fluid Thought processes: Linear and logical MSK: Smooth and coordinated gait, no signs of tremors or involuntary orofacial movements Thought content: Future orientated Abstract reasoning, and computation: Intact Description of associations: Intact Description of abnormal or psychotic thoughts: Denies any suicidal or homicidal ideation. Denies any auditory or visual hallucinations. Does not appear to be responding to internal stimuli. Does not appear to be endorsing any bizarre or paranoid ideation. Judgment: fair Insight: fair Orientation: Alert and orientated 3 Cognition: Grossly normal Recent and remote memory: Intact Attention span and concentration: Intact Fund of knowledge: Adequate Mood: "okay" Affect: Euthymic with a full range Diagnoses PTSD, chronic. MDD, moderate Alcohol use disorder. Assessment and Plan PTSD/MDD: Continue Effexor 75 mg daily. Alcohol use disorder: To continue CIWA and naltrexone 25 at this time. Disposition The patient will need a further inpatient admission. He's elected to stay longer as he wishes to be transferred bed back to rehab. I have discussed with patient at length the nature of this. He is currently staying on a voluntary understanding as he reports getting a lot out of his stay. He has some chronic risk factors and thus ideally transferring him to a rehab will help ensure that he would not act on his impulsivity that is chronic. Time Spent 15 minutes. Sunday Vital Signs Vital Signs Date Time Temp Pulse Resp B/P (MAP) Pulse Ox O2 Delivery O2 Flow Rate FiO2 06/20/19 06:31 98.4 54 14 135/62 (86) Current Medications Current Medications Medications (Trade) Dose Ordered Sig/Donnie Route PRN Reason Start Time Stop Time Status Last Admin Dose Admin Acetaminophen (Tylenol Tab) 650 mg Q6HP PRN PO HEADACHE or DISCOMFORT 06/13/19 14:15 Al Hydrox/Mg Hydrox/Simethicone (Mylanta) 30 ml Q4HP PRN PO HEARTBURN/INDIGESTION 06/13/19 14:15 Home Med (Med Rec Complete!) ASDIRECTED XX 06/13/19 14:30 06/13/19 14:21 DC Levothyroxine Sodium (Synthroid) 50 mcg DAILY@06 PO 06/14/19 06:00 06/20/19 06:37 Levothyroxine Sodium (Synthroid) 125 mcg DAILY@06 PO 06/14/19 06:00 06/20/19 06:37 Magnesium Hydroxide (Milk Of Magnesia) 30 ml DAILYPRN PRN PO CONSTIPATION 06/13/19 14:15 Naltrexone HCl (Revia) 25 mg DAILY PO 06/15/19 09:00 06/20/19 09:39 Nicotine (Nicoderm Cq 21mg) 1 patch DAILY TD 06/13/19 09:00 Trazodone HCl (Desyrel) 50 mg QHSP PRN PO INSOMNIA 06/13/19 14:15 06/19/19 22:19 Venlafaxine HCl (Effexor Xr) 37.5 mg DAILY PO 06/15/19 09:00 06/16/19 10:04 DC 06/16/19 08:55 Venlafaxine HCl (Effexor Xr) 75 mg DAILY PO 06/17/19 09:00 06/20/19 09:39 Allergies Coded Allergies: No Known Allergies (Unverified , 10/20/16) KARAN JACOBSON DO Jun 20, 2019 10:34
[2019-06-20 16:46] VITALS: BP 140/98
[2019-06-20] MEDS: traZODone 50 MG TAB PO PRN (22:30)
[2019-06-21] MEDS: LEVOTHYROXINE 125MCG TABLET (0.125MG) PO SCH (05:51)
[2019-06-21] MEDS: LEVOTHYROXINE 50MCG TABLET (0.05MG) PO SCH (05:52)
[2019-06-21 06:14] VITALS: BP 108/52
[2019-06-21] MEDS: NICOTINE 21MG/24HR 1 EA TRANSDERMAL TD SCH (09:00)
[2019-06-21] MEDS: VENLAFAXINE **XR** 75MG CAPSULE PO SCH (09:26)
[2019-06-21] MEDS: PILL CUTTER 1 EACH XX PRN (09:26)
[2019-06-21] MEDS: NALTREXONE 50 MG TAB PO SCH (09:26)
[2019-06-21 16:09] VITALS: BP 140/90
[2019-06-21] MEDS: traZODone 50 MG TAB PO PRN (23:12)
[2019-06-22] MEDS: LEVOTHYROXINE 125MCG TABLET (0.125MG) PO SCH (05:44)
[2019-06-22] MEDS: LEVOTHYROXINE 50MCG TABLET (0.05MG) PO SCH (05:44)
[2019-06-22 06:31] VITALS: BP 134/80
[2019-06-22] MEDS: VENLAFAXINE **XR** 75MG CAPSULE PO SCH (08:38)
[2019-06-22] MEDS: NALTREXONE 50 MG TAB PO SCH (08:39)
[2019-06-22] MEDS: NICOTINE 21MG/24HR 1 EA TRANSDERMAL TD SCH ×2 (09:00→09:40)
[2019-06-22 16:00] VITALS: BP 148/86
[2019-06-22] MEDS: OLANZapine ORAL DISINTEGRATING TAB 5MG PO PRN ×2 (18:07→22:07)
[2019-06-22] MEDS: traZODone 100 MG TAB PO PRN (22:07)
[2019-06-23] MEDS: LEVOTHYROXINE 125MCG TABLET (0.125MG) PO SCH (05:50)
[2019-06-23] MEDS: LEVOTHYROXINE 50MCG TABLET (0.05MG) PO SCH (05:50)
[2019-06-23 06:44] VITALS: BP 148/86
[2019-06-23] MEDS: NALTREXONE 50 MG TAB PO SCH (08:33)
[2019-06-23] MEDS: VENLAFAXINE **XR** 75MG CAPSULE PO SCH (08:33)
--- NOTE | 2019-06-23 08:38 | MHIPNPDOC ---
[facility] Progress Note Progress Note Joseph Dial Inpatient Progress Note Joseph Dial Select Gender MRN: N/A Date of : MM/DD/YYYY Date of Service: 06/23/2019 History of Present Illness The patient is a 38-year-old man who has a history of PTSD, had served in the for nearly 16 years in [facility] after reportedly having suicidal thoughts of wanting to shoot himself. He had reportedly told his today that he would "eat a bullet" and had been chased by police into the [place] where he had come out after he reportedly was able to be coaxed out and brought to the ER where he was admitted out of an abundance of caution. When I met with the patient, he reported that he had significant memories focused on his experiences that haunted him intrusive thoughts hypervigilance and negative cognition about the future. He reports coping with alcohol and sex. He describes that his symptoms are difficult to manage at baseline, but become extremely difficult to manage when he starts drinking. He reports drinking in the night before presentation and reports that his marriage has been suffering due to his multiple affairs. He reports that he is become increasingly pessimistic, self approached, depressed and lost interest in various activities. He is currently in a [facility] program in order to get more working skills; however, he reports that he does not comply with his [facility] mental health treatment and has not been taking medication Interval History Narrative: The patient is met with today. He reports that he is currently pursuing getting substance use and PTSD treatment in [place]. He has been engaged in his discharge process and has been doing well. 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 Psychotic: Denies any symptoms. Anxiety: The patient reports anxiety about his current situation and the rehab referral. Eating and sleeping behaviors: Within normal limits. Group Attendance: Attends frequently. Medication Side effects: See ROS below Behavioral problems/significant events overnight: Staff reported that the patient was upset yesterday, but was able to remain in behavioral control. Staff Report: The patient generally engaged although has moments of frustration. Review Of Systems General: Denies fever or appetite changes Cardiovascular: Denies chest pain or palpitations GI: Denies Nausea, vomiting, or bowel changes Respiratory: Denies shortness of breath or cough Neuro: Denies dizziness, tremors Derm: Denies any rashes or pruritus : Denies any dysuria or urinary problems MSK: Denies any muscle tightness or stiffness HEENT: Denies any vision changes or headaches Psychotherapy None on this visit. Vital Signs Reviewed. Mental Status Examination General: Well dressed with good hygiene Speech: Spontaneous and fluid Thought processes: Linear and logical MSK: Smooth and coordinated gait, no signs of tremors or involuntary orofacial movements Thought content: Future orientated Abstract reasoning, and computation: Intact Description of associations: Intact Description of abnormal or psychotic thoughts: Denies any suicidal or homicidal ideation. Denies any auditory or visual hallucinations. Does not appear to be responding to internal stimuli. Does not appear to be endorsing any bizarre or paranoid ideation. Judgment: fair Insight: fair Orientation: Alert and orientated 3 Cognition: Grossly normal Recent and remote memory: Intact Attention span and concentration: Intact Fund of knowledge: Adequate Mood: "okay" Affect: Euthymic with a full range Diagnoses PTSD, chronic. MDD, moderate Alcohol use disorder. Assessment and Plan PTSD/MDD: Continue Effexor 75 mg daily. Alcohol use disorder: To continue CIWA and naltrexone 25 at this time. Disposition We are currently pending placing the patient in a coordinated program. Ideally, today or tomorrow, we should have referral information handled and a potential date for the patient, thus, then discussion will be undertaken about a reasonable plan in the interim between beds if there is a gap, as the patient worries about relapsing on alcohol and having a significant problem as he has notable history of impulsivity and drinking that leads to destructive behaviors. Time Spent 15 minutes. Vital Signs Vital Signs Date Time Temp Pulse Resp B/P (MAP) Pulse Ox O2 Delivery O2 Flow Rate FiO2 06/23/19 06:44 97.4 50 16 148/86 (106) Room Air Current Medications Current Medications Medications (Trade) Dose Ordered Sig/Donnie Route PRN Reason Start Time Stop Time Status Last Admin Dose Admin Acetaminophen (Tylenol Tab) 650 mg Q6HP PRN PO HEADACHE or DISCOMFORT 06/13/19 14:15 Al Hydrox/Mg Hydrox/Simethicone (Mylanta) 30 ml Q4HP PRN PO HEARTBURN/INDIGESTION 06/13/19 14:15 Home Med (Med Rec Complete!) ASDIRECTED XX 06/13/19 14:30 06/13/19 14:21 DC Levothyroxine Sodium (Synthroid) 50 mcg DAILY@06 PO 06/14/19 06:00 06/23/19 05:50 Levothyroxine Sodium (Synthroid) 125 mcg DAILY@06 PO 06/14/19 06:00 06/23/19 05:50 Magnesium Hydroxide (Milk Of Magnesia) 30 ml DAILYPRN PRN PO CONSTIPATION 06/13/19 14:15 Naltrexone HCl (Revia) 25 mg DAILY PO 06/15/19 09:00 06/23/19 08:33 Nicotine (Nicoderm Cq 21mg) 1 patch DAILY TD 06/13/19 09:00 Olanzapine (ZyPREXA ZYDIS) 5 mg Q4HP PRN PO ANXIETY/AGITATION 06/22/19 17:15 06/22/19 22:07 Trazodone HCl (Desyrel) 50 mg QHSP PRN PO INSOMNIA 06/13/19 14:15 06/22/19 17:14 DC 06/21/19 23:12 Trazodone HCl (Desyrel) 100 mg QHSP PRN PO INSOMNIA 06/22/19 17:15 06/22/19 22:07 Venlafaxine HCl (Effexor Xr) 37.5 mg DAILY PO 06/15/19 09:00 06/16/19 10:04 DC 06/16/19 08:55 Venlafaxine HCl (Effexor Xr) 75 mg DAILY PO 06/17/19 09:00 06/23/19 08:33 Allergies Coded Allergies: No Known Allergies (Unverified , 10/20/16) KARAN JACOBSON DO Jun 23, 2019 08:38
[2019-06-23] MEDS: OLANZapine ORAL DISINTEGRATING TAB 5MG PO PRN ×2 (14:22→18:40)
[2019-06-23 15:47] VITALS: BP 143/86
[2019-06-23] MEDS: traZODone 100 MG TAB PO PRN (21:32)
[2019-06-24] MEDS: LEVOTHYROXINE 50MCG TABLET (0.05MG) PO SCH (05:52)
[2019-06-24] MEDS: LEVOTHYROXINE 125MCG TABLET (0.125MG) PO SCH (05:52)
[2019-06-24 06:50] VITALS: BP 160/74
[2019-06-24] MEDS: NALTREXONE 50 MG TAB PO SCH (08:24)
[2019-06-24] MEDS: VENLAFAXINE **XR** 37.5 MG CAPSULE PO SCH (08:24)
[2019-06-24] MEDS: NICOTINE 21MG/24HR 1 EA TRANSDERMAL TD SCH (08:25)
[2019-06-24] MEDS: OLANZapine ORAL DISINTEGRATING TAB 5MG PO PRN ×3 (09:59→19:43)
[2019-06-24] MEDS: OSELTAMIVIR PHOSPHATE 75 MG CAP (TAMIFLU) PO SCH (12:10)
--- NOTE | 2019-06-24 12:11 | IPNPDOC ---
Text Note Date of Service The patient was seen on 06/24/19. NOTE S: Patient seen and examined at bedside. No medical complaints. Denies chest pain, shortness of breath, headaches, fevers/chills, myalgia, abdominal pain, N/V/D. O: General: NAD, sitting comfortably in chair HEENT: NC/AT, EOMI, PERRL Lungs: CTA B/L Heart: +S1S2, RRR Abd: soft, NT, +BS Ext: no edema A/P: 38 yo male admitted to [facility], medical follow up for influenza screening/prophylaxis. #influenza screen - flu swab pending - start Tamiflu for prophylaxis - 75 qd x 14 days VS,Fishbone, I+O VS, Fishbone, I+O Vital Signs Date Time Temp Pulse Resp B/P (MAP) Pulse Ox O2 Delivery O2 Flow Rate FiO2 06/24/19 06:50 98.1 80 16 160/74 (102) 06/23/19 06:44 Room Air JENNIFER DURAN MD Jun 24, 2019 12:11
[2019-06-24 16:00] VITALS: BP 135/79
[2019-06-24] MEDS: traZODone 100 MG TAB PO PRN (21:00)
[2019-06-25] MEDS: LEVOTHYROXINE 50MCG TABLET (0.05MG) PO SCH (05:53)
[2019-06-25] MEDS: LEVOTHYROXINE 125MCG TABLET (0.125MG) PO SCH (05:53)
[2019-06-25 06:48] VITALS: BP 143/76
[2019-06-25] MEDS: VENLAFAXINE **XR** 37.5 MG CAPSULE PO SCH (08:24)
[2019-06-25] MEDS: OSELTAMIVIR PHOSPHATE 75 MG CAP (TAMIFLU) PO SCH (08:25)
[2019-06-25] MEDS: NALTREXONE 50 MG TAB PO SCH (08:25)
[2019-06-25] MEDS: NICOTINE 21MG/24HR 1 EA TRANSDERMAL TD SCH (08:30)
[2019-06-25] MEDS: OLANZapine ORAL DISINTEGRATING TAB 5MG PO PRN ×3 (08:30→17:16)
--- NOTE | 2019-06-25 09:32 | MHIPNPDOC ---
[facility] Progress Note Progress Note Joseph Dial Inpatient Progress Note Joseph Dial Select Gender MRN: N/A Date of : MM/DD/YYYY Date of Service: 06/25/2019 History of Present Illness The patient is a 38-year-old man who has a history of PTSD, had served in the for nearly 16 years in [facility] after reportedly having suicidal thoughts of wanting to shoot himself. He had reportedly told his today that he would "eat a bullet" and had been chased by police into the [facility] where he had come out after he reportedly was able to be coaxed out and brought to the ER where he was admitted out of an abundance of caution. Interval History Narrative: The patient is met with in the group setting. He has been accepted for a bed this Sunday in his preferred treatment facility in [place]. He reports feeling hopeful and well engaged in the process. Affective: The patient reports doing better with less irritability and feels he has gotten significant benefit from being here. Psychotic: Denies any symptoms. Anxiety: The patient still reports worries about him drinking again. Eating and sleeping behaviors: Within normal limits. Group Attendance: Attends frequently. Medication Side effects: See ROS below Behavioral problems/significant events overnight: Staff reported that the patient was upset yesterday, but was able to remain in behavioral control. Staff Report: The patient made good progress with less moments of frustration. Review Of Systems General: Denies fever or appetite changes Cardiovascular: Denies chest pain or palpitations GI: Denies Nausea, vomiting, or bowel changes Respiratory: Denies shortness of breath or cough Neuro: Denies dizziness, tremors Derm: Denies any rashes or pruritus : Denies any dysuria or urinary problems MSK: Denies any muscle tightness or stiffness HEENT: Denies any vision changes or headaches Psychotherapy None on this visit. Vital Signs Reviewed. Mental Status Examination General: Well dressed with good hygiene Speech: Spontaneous and fluid Thought processes: Linear and logical MSK: Smooth and coordinated gait, no signs of tremors or involuntary orofacial movements Thought content: Future orientated Abstract reasoning, and computation: Intact Description of associations: Intact Description of abnormal or psychotic thoughts: Denies any suicidal or homicidal ideation. Denies any auditory or visual hallucinations. Does not appear to be responding to internal stimuli. Does not appear to be endorsing any bizarre or paranoid ideation. Judgment: fair Insight: fair Orientation: Alert and orientated 3 Cognition: Grossly normal Recent and remote memory: Intact Attention span and concentration: Intact Fund of knowledge: Adequate Mood: "okay" Affect: Euthymic with a full range Diagnoses PTSD, chronic. MDD, moderate Alcohol use disorder. Assessment and Plan PTSD/MDD: Increase Effexor to 150 mg daily. Alcohol use disorder: Continue naltrexone 25 mg at this time. Discontinue CIWA. Disposition Patient will be slated for discharge this Sunday with a preset discharge plan and discharge orders, he will have his fiber picker his medications to be given to him prior to getting on to a flight to [place] to attend his preferred program. Time Spent 15 minutes. Vital Signs Vital Signs Date Time Temp Pulse Resp B/P (MAP) Pulse Ox O2 Delivery O2 Flow Rate FiO2 06/25/19 06:48 97.6 64 16 143/76 (98) 06/23/19 06:44 Room Air Current Medications Current Medications Medications (Trade) Dose Ordered Sig/Donnie Route PRN Reason Start Time Stop Time Status Last Admin Dose Admin Acetaminophen (Tylenol Tab) 650 mg Q6HP PRN PO HEADACHE or DISCOMFORT 06/13/19 14:15 Al Hydrox/Mg Hydrox/Simethicone (Mylanta) 30 ml Q4HP PRN PO HEARTBURN/INDIGESTION 06/13/19 14:15 Home Med (Med Rec Complete!) ASDIRECTED XX 06/13/19 14:30 06/13/19 14:21 DC Levothyroxine Sodium (Synthroid) 50 mcg DAILY@06 PO 06/14/19 06:00 06/25/19 05:53 Levothyroxine Sodium (Synthroid) 125 mcg DAILY@06 PO 06/14/19 06:00 06/25/19 05:53 Magnesium Hydroxide (Milk Of Magnesia) 30 ml DAILYPRN PRN PO CONSTIPATION 06/13/19 14:15 Naltrexone HCl (Revia) 25 mg DAILY PO 06/15/19 09:00 06/25/19 08:25 Nicotine (Nicoderm Cq 21mg) 1 patch DAILY TD 06/13/19 09:00 Olanzapine (ZyPREXA ZYDIS) 5 mg Q4HP PRN PO ANXIETY/AGITATION 06/22/19 17:15 06/25/19 08:30 Oseltamivir Phosphate (Tamiflu) 75 mg DAILY PO 06/24/19 09:00 07/08/19 08:59 06/25/19 08:25 Trazodone HCl (Desyrel) 50 mg QHSP PRN PO INSOMNIA 06/13/19 14:15 06/22/19 17:14 DC 06/21/19 23:12 Trazodone HCl (Desyrel) 100 mg QHSP PRN PO INSOMNIA 06/22/19 17:15 06/24/19 21:00 Venlafaxine HCl (Effexor Xr) 37.5 mg DAILY PO 06/15/19 09:00 06/16/19 10:04 DC 06/16/19 08:55 Venlafaxine HCl (Effexor Xr) 75 mg DAILY PO 06/17/19 09:00 06/23/19 09:41 DC 06/23/19 08:33 Venlafaxine HCl (Effexor Xr) 112.5 mg DAILY PO 06/24/19 09:00 06/25/19 08:24 Allergies Coded Allergies: No Known Allergies (Unverified , 10/20/16) KARAN JACOBSON DO Jun 25, 2019 09:32
[2019-06-25] MEDS ORDERED: DISU250T PO (09:36)
[2019-06-25] MEDS ORDERED: LEVO125T4 PO (11:41)
[2019-06-25] MEDS ORDERED: VENL150C43 PO (11:41)
[2019-06-25] MEDS ORDERED: NICO21PAT TD (11:41)
[2019-06-25] MEDS ORDERED: NALT50TA4 PO (11:41)
[2019-06-25] MEDS ORDERED: TRAZ-257 PO (11:41)
[2019-06-25] MEDS ORDERED: LEVO50TA5 PO (11:41)
[2019-06-25 16:00] VITALS: BP 144/93
[2019-06-25] MEDS: traZODone 100 MG TAB PO PRN (21:44)
[2019-06-26] MEDS: LEVOTHYROXINE 50MCG TABLET (0.05MG) PO SCH (05:52)
[2019-06-26] MEDS: LEVOTHYROXINE 125MCG TABLET (0.125MG) PO SCH (05:52)
[2019-06-26 06:32] VITALS: BP 144/84
[2019-06-26] MEDS: OSELTAMIVIR PHOSPHATE 75 MG CAP (TAMIFLU) PO SCH (08:34)
[2019-06-26] MEDS: VENLAFAXINE **XR** 75MG CAPSULE PO SCH (08:34)
[2019-06-26] MEDS: NALTREXONE 50 MG TAB PO SCH (08:34)
[2019-06-26] MEDS: OLANZapine ORAL DISINTEGRATING TAB 5MG PO PRN ×3 (08:35→17:57)
[2019-06-26] MEDS: NICOTINE 21MG/24HR 1 EA TRANSDERMAL TD SCH (08:35)
--- NOTE | 2019-06-26 08:44 | MHIPNPDOC ---
[facility] Progress Note Progress Note Joseph Dial Inpatient Progress Note Joseph Dial Select Gender MRN: N/A Date of : MM/DD/YYYY Date of Service: 06/26/2019 History of Present Illness The patient is a 38-year-old man who has a history of PTSD, had served in the for nearly 16 years in [facility] after reportedly having suicidal thoughts of wanting to shoot himself. He had reportedly told his today that he would "eat a bullet" and had been chased by police into the [place] where he had come out after he reportedly was able to be coaxed out and brought to the ER where he was admitted out of an abundance of caution. Interval History Narrative: The patient is met with in the group setting. He will be transferred Sunday. The patient reports being upset yesterday as the insurance company had declined him at first due to an error. Affective: The patient reports doing better with his irritability, low mood continues to improve. Psychotic: Denies any symptoms. Anxiety: The patient still reports worries about him drinking again. Eating and sleeping behaviors: Within normal limits. Group Attendance: Attends frequently. Medication Side effects: See ROS below Behavioral problems/significant events overnight: Significant events overnight, the patient reported being upset yesterday as above, but was in behavioral control. Staff Report: The patient has made good progress and is generally friendly. Review Of Systems General: Denies fever or appetite changes Cardiovascular: Denies chest pain or palpitations GI: Denies Nausea, vomiting, or bowel changes Respiratory: Denies shortness of breath or cough Neuro: Denies dizziness, tremors Derm: Denies any rashes or pruritus : Denies any dysuria or urinary problems MSK: Denies any muscle tightness or stiffness HEENT: Denies any vision changes or headaches Psychotherapy None on this visit. Vital Signs Reviewed. Mental Status Examination General: Well dressed with good hygiene Speech: Spontaneous and fluid Thought processes: Linear and logical MSK: Smooth and coordinated gait, no signs of tremors or involuntary orofacial movements Thought content: Future orientated Abstract reasoning, and computation: Intact Description of associations: Intact Description of abnormal or psychotic thoughts: Denies any suicidal or homicidal ideation. Denies any auditory or visual hallucinations. Does not appear to be responding to internal stimuli. Does not appear to be endorsing any bizarre or paranoid ideation. Judgment: fair Insight: fair Orientation: Alert and orientated 3 Cognition: Grossly normal Recent and remote memory: Intact Attention span and concentration: Intact Fund of knowledge: Adequate Mood: "okay" Affect: Euthymic with a full range Diagnoses PTSD, chronic. MDD, moderate Alcohol use disorder. Assessment and Plan PTSD/MDD: Continue Effexor 150 mg daily. Alcohol use disorder: Continue naltrexone 25 mg at this time. Discontinue CIWA. Disposition Patient will be slated for discharge this Sunday with a preset discharge plan and discharge orders, he will have his picker box operator his medications to be given to him prior to getting on to a flight to [place] to attend his preferred program. Time Spent 15 minutes. Vital Signs Vital Signs Date Time Temp Pulse Resp B/P (MAP) Pulse Ox O2 Delivery O2 Flow Rate FiO2 06/26/19 06:32 98.4 75 16 144/84 (104) 06/23/19 06:44 Room Air Current Medications Current Medications Medications (Trade) Dose Ordered Sig/Donnie Route PRN Reason Start Time Stop Time Status Last Admin Dose Admin Acetaminophen (Tylenol Tab) 650 mg Q6HP PRN PO HEADACHE or DISCOMFORT 06/13/19 14:15 Al Hydrox/Mg Hydrox/Simethicone (Mylanta) 30 ml Q4HP PRN PO HEARTBURN/INDIGESTION 06/13/19 14:15 Home Med (Med Rec Complete!) ASDIRECTED XX 06/13/19 14:30 06/13/19 14:21 DC Levothyroxine Sodium (Synthroid) 50 mcg DAILY@06 PO 06/14/19 06:00 06/26/19 05:52 Levothyroxine Sodium (Synthroid) 125 mcg DAILY@06 PO 06/14/19 06:00 06/26/19 05:52 Magnesium Hydroxide (Milk Of Magnesia) 30 ml DAILYPRN PRN PO CONSTIPATION 06/13/19 14:15 Naltrexone HCl (Revia) 25 mg DAILY PO 06/15/19 09:00 06/26/19 08:34 Nicotine (Nicoderm Cq 21mg) 1 patch DAILY TD 06/13/19 09:00 Olanzapine (ZyPREXA ZYDIS) 5 mg Q4HP PRN PO ANXIETY/AGITATION 06/22/19 17:15 06/26/19 08:35 Oseltamivir Phosphate (Tamiflu) 75 mg DAILY PO 06/24/19 09:00 07/08/19 08:59 06/26/19 08:34 Trazodone HCl (Desyrel) 50 mg QHSP PRN PO INSOMNIA 06/13/19 14:15 06/22/19 17:14 DC 06/21/19 23:12 Trazodone HCl (Desyrel) 100 mg QHSP PRN PO INSOMNIA 06/22/19 17:15 06/25/19 21:44 Venlafaxine HCl (Effexor Xr) 37.5 mg DAILY PO 06/15/19 09:00 06/16/19 10:04 DC 06/16/19 08:55 Venlafaxine HCl (Effexor Xr) 75 mg DAILY PO 06/17/19 09:00 06/23/19 09:41 DC 06/23/19 08:33 Venlafaxine HCl (Effexor Xr) 112.5 mg DAILY PO 06/24/19 09:00 06/25/19 09:37 DC 06/25/19 08:24 Venlafaxine HCl (Effexor Xr) 150 mg DAILY PO 06/26/19 09:00 06/26/19 08:34 Allergies Coded Allergies: No Known Allergies (Unverified , 10/20/16) KARAN JACOBSON DO Jun 26, 2019 08:44
[2019-06-26 17:52] VITALS: BP 144/87
[2019-06-26] MEDS: traZODone 100 MG TAB PO PRN (21:20)
[2019-06-27] MEDS: OLANZapine ORAL DISINTEGRATING TAB 5MG PO PRN ×4 (04:11→18:08)
[2019-06-27] MEDS: LEVOTHYROXINE 50MCG TABLET (0.05MG) PO SCH (05:47)
[2019-06-27] MEDS: LEVOTHYROXINE 125MCG TABLET (0.125MG) PO SCH (05:47)
[2019-06-27 06:21] VITALS: BP 153/85
[2019-06-27] MEDS: VENLAFAXINE **XR** 75MG CAPSULE PO SCH (08:30)
[2019-06-27] MEDS: OSELTAMIVIR PHOSPHATE 75 MG CAP (TAMIFLU) PO SCH (08:30)
[2019-06-27] MEDS: NALTREXONE 50 MG TAB PO SCH (08:30)
[2019-06-27] MEDS: NICOTINE 21MG/24HR 1 EA TRANSDERMAL TD SCH (08:33)
--- NOTE | 2019-06-27 09:11 | MHIPNPDOC ---
[facility] Progress Note Progress Note DATE OF SERVICE: 06/27/19 HISTORY: . VITAL SIGNS: See below. NEW TEST RESULTS: . CURRENT MEDICATIONS: See below. MENTAL STATUS EXAMINATION: Patient is a -year old male, who is . Speech: Is . Language skills are . Thought processes including: . Thought content: . Abstract reasoning, and computation: . Description of associ ations: . Description of abnormal or psychotic thoughts: . Judgment: . Insight: [very limited, good, fair. poor]. Orientation: . Recent and remote memory: . Attention span and concentration: . Language: . Fund of knowledge: . Mood: . Affect: . DIAGNOSES: 1. . 2. . 3. . ASSESSMENT: MANAGEMENT PLAN: . TIME SPENT: minutes. Vital Signs Vital Signs Date Time Temp Pulse Resp B/P (MAP) Pulse Ox O2 Delivery O2 Flow Rate FiO2 06/27/19 06:21 97.4 86 18 153/85 (107) 06/23/19 06:44 Room Air Current Medications Current Medications Medications (Trade) Dose Ordered Sig/Donnie Route PRN Reason Start Time Stop Time Status Last Admin Dose Admin Acetaminophen (Tylenol Tab) 650 mg Q6HP PRN PO HEADACHE or DISCOMFORT 06/13/19 14:15 Al Hydrox/Mg Hydrox/Simethicone (Mylanta) 30 ml Q4HP PRN PO HEARTBURN/INDIGESTION 06/13/19 14:15 Home Med (Med Rec Complete!) ASDIRECTED XX 06/13/19 14:30 06/13/19 14:21 DC Levothyroxine Sodium (Synthroid) 50 mcg DAILY@06 PO 06/14/19 06:00 06/27/19 05:47 Levothyroxine Sodium (Synthroid) 125 mcg DAILY@06 PO 06/14/19 06:00 06/27/19 05:47 Magnesium Hydroxide (Milk Of Magnesia) 30 ml DAILYPRN PRN PO CONSTIPATION 06/13/19 14:15 Naltrexone HCl (Revia) 25 mg DAILY PO 06/15/19 09:00 06/27/19 08:30 Nicotine (Nicoderm Cq 21mg) 1 patch DAILY TD 06/13/19 09:00 Olanzapine (ZyPREXA ZYDIS) 5 mg Q4HP PRN PO ANXIETY/AGITATION 06/22/19 17:15 06/27/19 08:30 Oseltamivir Phosphate (Tamiflu) 75 mg DAILY PO 06/24/19 09:00 07/08/19 08:59 06/27/19 08:30 Trazodone HCl (Desyrel) 50 mg QHSP PRN PO INSOMNIA 06/13/19 14:15 06/22/19 17:14 DC 06/21/19 23:12 Trazodone HCl (Desyrel) 100 mg QHSP PRN PO INSOMNIA 06/22/19 17:15 06/26/19 21:20 Venlafaxine HCl (Effexor Xr) 37.5 mg DAILY PO 06/15/19 09:00 06/16/19 10:04 DC 06/16/19 08:55 Venlafaxine HCl (Effexor Xr) 75 mg DAILY PO 06/17/19 09:00 06/23/19 09:41 DC 06/23/19 08:33 Venlafaxine HCl (Effexor Xr) 112.5 mg DAILY PO 06/24/19 09:00 06/25/19 09:37 DC 06/25/19 08:24 Venlafaxine HCl (Effexor Xr) 150 mg DAILY PO 06/26/19 09:00 06/27/19 08:30 Allergies Coded Allergies: No Known Allergies (Unverified , 10/20/16) KARAN JACOBSON DO Jun 27, 2019 09:11
--- NOTE | 2019-06-27 11:56 | MHDSPDOC ---
[facility] Discharge Summary Discharge Summary DATE OF ADMISSION: Jun 13, 2019 at 14:01 DATE OF DISCHARGE: 06/29/19 Discharge Joseph Franklin MRN: N/[id number] Date of : N/A Date of Service: 06/27/2019 Diagnoses PTSD, chronic. MDD, moderate Alcohol use disorder. History of Present Illness The patient is a 38-year-old man who has a history of PTSD, had served in the for nearly 16 years in [place] presents after reportedly having suicidal thoughts of wanting to shoot himself. He had reportedly told his today that he would "eat a bullet" and had been chased by police into the [place] where he had come out after he reportedly was able to be coaxed out and brought to the ER where he was admitted out of an abundance of caution. The patient is a 38-year-old man who has a history of PTSD, had served in the for nearly 16 years in [place] presents after reportedly having suicidal thoughts of wanting to shoot himself. He had reportedly told his today that he would "eat a bullet" and had been chased by police into the [place] where he had come out after he reportedly was able to be coaxed out and brought to the ER where he was admitted out of an abundance of caution. Consultants Involved Hospitalist/PCP screening Treatment and Progress On The Unit The patient was admitted to the inpatient mental health unit. Initially he was quite upset about this, however, after he was spoken to he became more amenable. The patient did well on the unit and was started on Effexor 37.5 mg daily and naltrexone 25 mg daily for alcohol use. He was titrated up to 75 mg of Effexor with positive results. The patient increased to 150 mg daily of Effexor, with little if any side effects. Additionally, he had decided that he wanted to try to go to a long-term dual diagnosis unit for alcohol and PTSD. The patient stayed for roughly a week as we were arranging a bed to bed transfer and eventually he was able to engage in a bed to bed transfer on the Sunday after this discharge was processed. The patient did well and attended groups. He had no coding or other violent behaviors, although being annoyed and irritated at times he otherwise did quite well with redirection. Discharge Assessment The patient, a 38-year-old man with a history of PTSD, presents and is treated on our unit triaged for a dual diagnosis unit in [place]. The patient at the time of discharge did not meet criteria for involuntary admission/extension due to having a normal mental status exam, fair insight into the situation, They are engaged in the discharge process, as well as being friendly and amenable in behavioral control and havent been engaging in any observed concerning behavior or ideation recently. They decline voluntary extension/admission at this time and must be discharged in good madhu, as Im unable to make a case for holding the patient against their will. They may have historical risk factors of admissions and other interactions with psychiatry however, those are not modifiable from a clinical perspective. The patient will need to be discharged in good madhu. Mental Status Examination General: Well dressed with good hygiene Speech: Spontaneous and fluid Thought processes: Linear and logical MSK: Smooth and coordinated gait, no signs of tremors or involuntary orofacial movements Thought content: Future orientated Abstract reasoning, and computation: Intact Description of associations: Intact Description of abnormal or psychotic thoughts: Denies any suicidal or homicidal ideation. Denies any auditory or visual hallucinations. Does not appear to be responding to internal stimuli. Does not appear to be endorsing any bizarre or paranoid ideation. Judgment: fair Insight: fair Orientation: Alert and orientated 3 Cognition: Grossly normal Recent and remote memory: Intact Attention span and concentration: Intact Fund of knowledge: Adequate Mood: "okay" Affect: Euthymic with a full range Follow Up The social work team worked during the predischarge meeting in order to evaluate for further issues of lethality address them fully before discharge. They worked on safety planning with the patient's family members in order to ensure that the patient will have a safe and effective discharge. Time Spent The amount of time spent in the coordination of care for this patient was approximately 70 minutes. Sunday Vital Signs/I&Os Vital Signs Date Time Temp Pulse Resp B/P (MAP) Pulse Ox O2 Delivery O2 Flow Rate FiO2 06/27/19 06:21 97.4 86 18 153/85 (107) 06/23/19 06:44 Room Air Medications Scheduled Disulfiram (Disulfiram) 250 Mg Tablet, 1 TAB PO DAILY for alcohol for 30 Days, #30 Levothyroxine Sodium (Levothyroxine Sodium) 50 Mcg Tablet, 50 MCG PO DAILY@06 for metabolism for 30 Days, #30 Levothyroxine Sodium (Levothyroxine Sodium) 125 Mcg Tablet, 125 MCG PO DAILY@06 for metabolism for 30 Days, #30 Naltrexone HCl (Naltrexone HCl) 50 Mg Tablet, 25 MG PO DAILY for alcohol for 30 Days, #30 Nicotine (Nicotine Patch) 21 Mg Patch.td24, 1 PATCH TD DAILY for tobacco for 30 Days, #30 Venlafaxine HCl (Venlafaxine HCl ER) 150 Mg Cap.er.24h, 1 CAP PO DAILY for mood for 30 Days, #30 Scheduled PRN Trazodone HCl (Trazodone HCl) 100 Mg Tablet, 100 MG PO QHSP PRN for INSOMNIA for 30 Days, #30 Allergies Coded Allergies: No Known Allergies (Unverified , 10/20/16) KARAN JACOBSON DO Jun 27, 2019 11:56
[2019-06-27 16:00] VITALS: BP 146/90
[2019-06-27] MEDS: traZODone 100 MG TAB PO PRN (20:59)
[2019-06-28] MEDS: LEVOTHYROXINE 125MCG TABLET (0.125MG) PO SCH (05:53)
[2019-06-28] MEDS: LEVOTHYROXINE 50MCG TABLET (0.05MG) PO SCH (05:53)
[2019-06-28 06:37] VITALS: BP 113/68
[2019-06-28] MEDS: NICOTINE 21MG/24HR 1 EA TRANSDERMAL TD SCH (08:22)
[2019-06-28] MEDS: NALTREXONE 50 MG TAB PO SCH (08:24)
[2019-06-28] MEDS: VENLAFAXINE **XR** 75MG CAPSULE PO SCH (08:24)
[2019-06-28] MEDS: OSELTAMIVIR PHOSPHATE 75 MG CAP (TAMIFLU) PO SCH (08:24)
[2019-06-28] MEDS: OLANZapine ORAL DISINTEGRATING TAB 5MG PO PRN ×3 (08:24→22:07)
[2019-06-28 16:12] VITALS: BP 164/74
[2019-06-28] MEDS: traZODone 100 MG TAB PO PRN (22:07)
[2019-06-29] MEDS: OLANZapine ORAL DISINTEGRATING TAB 5MG PO PRN (04:50)
== END 2019-06-29 05:06 | DRG 885 ==
LOC: M ED 10:20 → M ED INP 14:01 → M PSY 14:50
PROVIDERS: ADMIT Psychiatry & Neurology Addiction Medicine; ATTEND Psychiatry & Neurology Addiction Medicine
DX: F32.1 Major depressive disorder, single episode, moderate (principal); F41.9 Anxiety disorder, unspecified; Z81.8 Family history of other mental and behavioral disorders; E78.00 Pure hypercholesterolemia, unspecified; F43.12 Post-traumatic stress disorder, chronic; K52.9 Noninfective gastroenteritis and colitis, unspecified; F32.9 Major depressive disorder, single episode, unspecified; F10.10 Alcohol abuse, uncomplicated; E03.9 Hypothyroidism, unspecified; Z79.899 Other long term (current) drug therapy; Z63.0 Problems in relationship with spouse or partner